=== PATIENT | female | born 1990 | race Caucasian/White ===

== ENCOUNTER 2018-09-03 08:54 | Outpatient (CLI) | payer OTHER ==
[~2018-09-03] VITALS: Ht 162.6 cm; Wt 104.2 kg
[2018-09-03 09:19] VITALS: BP 141/91
[2018-09-03 09:58] VITALS: BP 135/87
[2018-09-03] MEDS ORDERED: PRENTAB9 PO (10:45)
--- NOTE | 2018-09-03 14:07 | HPE ---
DATE OF ADMISSION: 09/03/2018 27-year-old 4, para 0, abortio 3, last menstrual period (LMP) 11/24/2017, EDC 08/31/2018 at 40 and 2 days of gestation had a history of spontaneous rupture of membranes at 0300. Was told by the intake physician to come after 07:30 this morning she had no contractions. No loss of fluid since that time. PAST HISTORY: In September 2011 spontaneous at 6 weeks. December 04, 2011 spontaneous at 6 weeks 4 days and November 2013 had an ectopic , question on the left side where the did either a salpingectomy or just milked out the ectopic. Her labs are O+, HIV negative, hep negative, RPR negative, rubella immune. Varicella immune. Urine was negative. 1-hour glucose 99. There is no other lab work available. The patient came in not wearing a pad. No evidence of leaking no evidence of contractions. Category 1 strip, temperature 98.4, blood pressure is 135/82. Respirations are 18 and pulse is 70. Urine 1.025, pH 5, the rest is negative. Symphysis fundus height is 40. Four quadrant bowel sounds are noted. Nontender uterus, vertex presenting. Sterile speculum examination: Cervix is closed. Ferning was negative. Nitrazine was negative. No suggestion of bacterial vaginosis (BV) or yeast. No evidence of discharge or bleeding. Cervix was 50% effaced, -3 station, about a finger posteriorly. The rest examination unremarkable. 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 No sexually transmitted diseases (STDs). No past medical or surgical history. Family history is noncontributory. Does not smoke, drink abuse drugs. She is . There is no domestic violence. She has no rashes, lesions or pruritus. No arthralgia or myalgia. No complaints of cough, wheezes, shortness of breath or dyspnea on exertion. Not bruising. Not bleeding. Neuro complete. No incontinency or frequency. The nausea, vomiting, diarrhea or constipation. No diabetic issues. In summary we have a term gestation with negative ruptured membranes. Counseled regarding premature rupture of membranes bleeding, kick chart and labor when to call the provider. Patient is booked for induction of labor on Friday when she will be 41 weeks. Between then and now if contractions start or continues to return here for evaluation. The patient had an appointment tomorrow at the clinic for JOAN and NST. Her NST year was category 1. Her JOAN was over 15 with three quadrants. The patient does not necessarily have to come to that appointment but keep her Friday induction of labor appointment. The patient was discharged undelivered. was given a note regarding the fact that he was here during the examination.
== END 2018-09-03 10:52 | disposition home or self-care (01) ==
LOC: M LDO 08:54
PROVIDERS: ATTEND Obstetrics & Gynecology
DX: O26.893 Other specified pregnancy related conditions, third trimester (principal); Z3A.40 40 weeks gestation of pregnancy
CPT/HCPCS: 59025; 76815; G0378; G0463

== ENCOUNTER 2018-09-04 10:01 | Inpatient (IN) | payer OTHER ==
[~2018-09-04] VITALS: Ht 162.6 cm; Wt 102.7 kg
[2018-09-04] VITALS (37 sets, daily range): BP systolic 92–138; BP diastolic 50–103
[~2018-09-04 10:01] MED LIST: PRENTAB9 PO
[2018-09-04 11:43] LABS: HEMATOCRIT 40.1 % (36.0-47.0); HEMOGLOBIN 13.6 g/dl (12.0-15.5); MEAN CORPUSCULAR HEMOGLOBIN 28.8 pg (27.0-33.0); MEAN CORPUSCULAR HGB CONC 33.9 g/dl (32.0-36.5); PLATELET COUNT, AUTOMATED 286 10^3/uL (150-450); RED BLOOD COUNT 4.72 10^6/uL (4.00-5.40); WHITE BLOOD COUNT 12.1 10^3/uL (4.0-10.0)
[2018-09-04] MEDS ORDERED: OXYTOCIN DRIP 30 UNITS in APPROPRIATE DILUENT 1 EA IV SCH (13:00)
[2018-09-04] MEDS: LR 1,000 ML IV SCH ×3 (13:30→20:49)
[2018-09-04] MEDS ORDERED: LACTATED RINGER'S 1000 ML IV STA (16:45)
--- NOTE | 2018-09-04 16:50 | IPNPDOC ---
Text Note Date of Service The patient was seen on 09/04/18. NOTE Pit at 4 mu/min FHT Cat 1, intermittent early decels noted, mod denton throughout, reg ctx's Pain increasing, desires an epidural Cx /-1, signif change OK for epidural Recheck in ~3 hrs, sooner prn. If no change next check will insert IUPC. Sessions VS,Luc, I+O VSLuc I+O Laboratory Tests 09/04/18 11:33 Red Blood Count 4.72, Mean Corpuscular Volume 85.0, Mean Corpuscular Hemoglobin 28.8, Mean Corpuscular Hemoglobin Concent 33.9, Red Cell Distribution Width 13.3 Vital Signs Date Time Temp Pulse Resp B/P (MAP) Pulse Ox O2 Delivery O2 Flow Rate FiO2 09/04/18 16:10 87 18 116/56 (76) 09/04/18 15:32 977.0 SESSIONSHAILEE MD Sep 04, 2018 16:50
[2018-09-04] MEDS ORDERED: FENTANYL 2MCG/ML ROPIVACAINE 0.2% IN 0.9% NACL 100ML IVBAG As Ordered ONE (17:11)
--- NOTE | 2018-09-04 17:18 | HPEPDOC ---
Obstetrical History & Physical General Date of Admission Sep 04, 2018 at 12:35 History of Present Illness late entry, examined at lunchtime 27 y/o at 40+4 with SROM this AM at 0400 this AM. Nitr pos, copious amts of fluid since ROM. Pos FM, no VB. Preg uncomplicated other than a renal cyst noted, baby will need a post delivery renal US. Transfer of care to us at 32 weeks. 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 Past Medical History Surgical History: Other (ectopic preg, laparoscopy X1) Family History Significant Family History: No pertinent family hx Social History Marital Status: Family situation: Spouse/partner home Psychosocial History: No pertinent psych hx * Smoker: non-smoker Alcohol: Denies Drugs: denies Abuse Violence Screening Have you been hit/kicked/slapp: No Have you been sexually assault: No Imunizations Tdap status: current Influenza Status: current Allergies Coded Allergies: No Known Allergies (Unverified , 09/03/18) Medications Scheduled Multivitamins/ ( 27-0.8 mg) 1 Tab Tab, 1 TAB PO DAILY Physical Examination Physical Examination GENERAL: Alert and oriented times three. ABDOMEN: Gravid and non-tender to touch. FETUS: Is vertex (VTX) by sterile vaginal examination (SVE), /-2 at ~noon EXTREMITIES: No edema. Vital Signs/I&O Vital Signs Date Time Temp Pulse Resp B/P (MAP) Pulse Ox O2 Delivery O2 Flow Rate FiO2 09/04/18 16:10 87 18 116/56 (76) 09/04/18 15:32 977.0 Laboratory Data 24H LABS Laboratory Tests 2 09/04/18 11:33: Nucleated Red Blood Cells % (auto) 0.0, Syphilis Serology NONREACTIVE 09/04/18 12:40: Serology Scanned Report Hepatitis B Testing CBC/BMP Laboratory Tests 09/04/18 11:33 Red Blood Count 4.72, Mean Corpuscular Volume 85.0, Mean Corpuscular Hemoglobin 28.8, Mean Corpuscular Hemoglobin Concent 33.9, Red Cell Distribution Width 13.3 Urine Culture: No Growth Pertinent Laboratoy Data Blood Type: O+ RBC Antibody Screen: Negative HIV: Negative Hepatitis B: Negative Hepatitis C: Unknown Rapid Plasma Reagin: Nonreactive Rubella: Immune Varicella: Immune Group B Streptococcus: Negative Quad Screen Test: Declined Cystic Fibrosis: Declined Anatomy Ultrasound Ultrasound Date: Aug 27, 2018 Placenta Location: Fundal Normal Anatomy: No (left kidney cyst, limited as was done at term) Placenta Previa: No Assessment Variability: Moderate Accelerations: Positive Decelerations: Early Tocometer Contractions: Yes Frequency: irregular Duration: less than 60 seconds Strength: palpated as mild Assessment/Plan Assessment SROM. Plan Admit and orient. Wellness Assistant and consent. Diet: clears Group B Streptococcus (GBS) neg Labs and intravenous (IV) per unit protocol. Counseled on Pitocin and induction of labor (IOL). Start now Lactated Ringers (LR): Bolus 1000 mL prior to epidura, then at 125 mL/hr. Anticipate normal spontaneous delivery () C-S as appropriate. Sessions MD HUMPHREYS,HAILEE Jeff MD Sep 04, 2018 17:18
[2018-09-04] MEDS ORDERED: LACTATED RINGER'S 1000 ML IV PRN (18:15)
[2018-09-04] MEDS ORDERED: ONDANSETRON 4MG/2ML VIAL (J2405) IV PRN (18:15)
[2018-09-04] MEDS ORDERED: EPIDURAL COMMENT XX SCH (18:15)
[2018-09-04] MEDS ORDERED: NALOXONE INJ 0.4 MG/1 ML VIAL (J2310) IV PRN (18:15)
[2018-09-04] MEDS ORDERED: diphenhydrAMINE INJ 50MG/ML VIAL (J1200) IV PRN (18:15)
[2018-09-04] MEDS ORDERED: ePHEDrine SULFATE 25 MG/5 ML(5MG/ML) SYRINGE IV PRN (18:15)
[2018-09-04] MEDS ORDERED: EPIDURAL/PCA KEYS XX PRN (18:15)
[2018-09-04] MEDS ORDERED: FENTANYL/ROPIVACAINE/NACL BAG 100 ML EPIDURAL SCH (18:15)
[2018-09-04] MEDS ORDERED: REFRIGERATOR IV KEYS XX PRN (18:15)
[2018-09-04] MEDS ORDERED: FAMOTIDINE IV BAG 20 MG in APPROPRIATE DILUENT 1 EA IV ONE (18:45)
--- NOTE | 2018-09-04 21:38 | IPNPDOC ---
Text Note Date of Service The patient was seen on 09/04/18. NOTE NST Cat 1 with periods of minimal variability, mostly moderate with reg ctx's and accels, especially when BP is corrected for post-epidural hypotension, has needed ephedrine X3, RN doing well watching this and reacting appropriately. Cx /, good progress. Plan on recheck at OK, sooner prn. Sessions VS,Luc, I+O VSLuc I+O Laboratory Tests 09/04/18 11:33 Red Blood Count 4.72, Mean Corpuscular Volume 85.0, Mean Corpuscular Hemoglobin 28.8, Mean Corpuscular Hemoglobin Concent 33.9, Red Cell Distribution Width 13.3 Vital Signs Date Time Temp Pulse Resp B/P (MAP) Pulse Ox O2 Delivery O2 Flow Rate FiO2 09/04/18 20:46 98.0 118 18 93/57 (69) SESSIONS,HAILEE Jeff MD Sep 04, 2018 21:38
[2018-09-05] VITALS (20 sets, daily range): BP systolic 69–146; BP diastolic 38–86
--- NOTE | 2018-09-05 00:21 | IPNPDOC ---
Text Note Date of Service The patient was seen on 09/05/18. NOTE FHT Cat 1, reg ctx's Cx C/90, RN check 1 hr ago was similar. Straight OA Will place back on pitocin and check ~0200, sooner prn Sessions MD CRAMER,Luc, I+O VS, Luc, I+O Laboratory Tests 09/04/18 11:33 Red Blood Count 4.72, Mean Corpuscular Volume 85.0, Mean Corpuscular Hemoglobin 28.8, Mean Corpuscular Hemoglobin Concent 33.9, Red Cell Distribution Width 13.3 Vital Signs Date Time Temp Pulse Resp B/P (MAP) Pulse Ox O2 Delivery O2 Flow Rate FiO2 09/04/18 23:03 99.0 115 18 113/60 (77) I&O- Last 24 Hours up to 6 AM 09/05/18 06:00 Intake Total 2958 ml Output Total 1250 ml Balance 1708 ml SESSIONS,HAILEE Jeff MD Sep 05, 2018 00:21
[2018-09-05] MEDS: LR 1,000 ML IV SCH (00:59)
--- NOTE | 2018-09-05 02:12 | IPNPDOC ---
Text Note Date of Service The patient was seen on 09/05/18. NOTE Pit at 4, lots more pressure NST Cat 2, mod denton, some variables and early's C/C/+2, start pushing Sessions VS,Luc, I+O VSLuc I+O Laboratory Tests 09/04/18 11:33 Red Blood Count 4.72, Mean Corpuscular Volume 85.0, Mean Corpuscular Hemoglobin 28.8, Mean Corpuscular Hemoglobin Concent 33.9, Red Cell Distribution Width 13.3 Vital Signs Date Time Temp Pulse Resp B/P (MAP) Pulse Ox O2 Delivery O2 Flow Rate FiO2 09/05/18 00:57 98.7 18 09/05/18 00:52 117 105/55 (72) I&O- Last 24 Hours up to 6 AM 09/05/18 06:00 Intake Total 3933 ml Output Total 1250 ml Balance 2683 ml SESSIONS,HAILEE Jeff MD Sep 05, 2018 02:12
[2018-09-05] MEDS ORDERED: OXYTOCIN DRIP 30 UNITS in APPROPRIATE DILUENT 1 EA IV SCH (05:12)
[2018-09-05] MEDS ORDERED: DIBUCAINE 1% OINTMENT 30GM TOP PRN (05:15)
[2018-09-05] MEDS ORDERED: METOCLOPRAMIDE INJ 10MG/2ML VIAL (J2765) IV PRN (05:15)
[2018-09-05] MEDS ORDERED: MEASLES,MUMPS,RUBELLA VACCINE INJ (MMR-II) (90707) SC SCH (05:15)
[2018-09-05] MEDS ORDERED: RHOGAM 300 MCG (1500 IU) INJ (J2790) IM SCH (05:15)
--- NOTE | 2018-09-05 05:20 | DNPDOC ---
[facility] Delivery Note Delivery Note DATE OF DELIVERY: [id number] PREDELIVERY DIAGNOSIS: 40 5/7 weeks' gestation and labor. POST DELIVERY DIAGNOSIS: Delivered. PROCEDURE: Spontaneous vaginal delivery RESEARCH TECH: Dr. Humphreys ANESTHESIA: epidural ESTIMATED BLOOD LOSS: 300 mL. FINDINGS: 8 pound 10 ounce male infant, Score 8/9, nuchal cord times 1, loose (reduced) DELIVERY SUMMARY: Pushed for ~2.5 hrs, good effort. Verbal consent for episiotomy but she pushed extra hard and not needed. Vtx delivered KAMRON, then to ROT. Cord easily reduced. Left ant shoulder w/o delay followed by right shoulder. Good shape to abd. Cord C/C by FOB. Cord blood. Placenta intact. Fundus firm, pit going 999. Small amt trailing membranes easily removed with bimanual exam and massage. 1st degr lac repaired with 3-0 vicryl. Good cosmesis/hemostasis. Uncomplicated. Sessions MD HUMPHREYS,HAILEE Jeff MD Sep 05, 2018 05:20
[2018-09-05] MEDS: DOCUSATE SODIUM 100 MG CAP PO SCH ×2 (08:43→21:59)
[2018-09-05] MEDS: IBUPROFEN 800 MG TAB PO PRN ×2 (08:43→18:41)
[2018-09-05] MEDS: PRENATAL VITAMINS CHEWABLE TABLET PO SCH (08:43)
[2018-09-05] MEDS: ACETAMINOPHEN TAB 650MG DOSE (2X325MG) PO PRN (12:16)
--- NOTE | 2018-09-05 14:53 | IPN ---
DATE: 09/05/2018 Patient and requested circumcision of their male . After discussing risks and benefits of circumcision, the medical and nonmedical indications, penile block, and aftercare, expressed understanding of the penile block, aftercare, and bleeding, signed the consent form. We await the clearance by the drywall hanger.
[2018-09-05] MEDS ORDERED: ADACEL/BOOSTRIX VACCINE (DIPHTH/PERTUSS/ACELL/TETANUS)0.5ML SYR (90715) IM PRN (17:15)
[2018-09-06 05:51] VITALS: BP 98/53
[2018-09-06] MEDS: PRENATAL VITAMINS CHEWABLE TABLET PO SCH (07:56)
[2018-09-06] MEDS: DOCUSATE SODIUM 100 MG CAP PO SCH ×2 (07:56→21:03)
[2018-09-06] MEDS: IBUPROFEN 800 MG TAB PO PRN ×2 (07:57→18:39)
--- NOTE | 2018-09-06 09:56 | IPNPDOC ---
Progress Note Date of Service: Sep 06, 2018 Progress Note 27 yo G4 now P1 s/p uncomplicated yesterday after being admitted for SROM. Currently PPD#1. Ms. Oakes reports feeling well today, just tired. She has been ambulating, voiding, and tolerating a regular diet. Lochia is minimal. She has minimal pain. Vitals - VSS, afebrile, normotensive, non tachycardic General - AAOX3, laying in bed, NAD Abdomen - Fundus firm at U-2. No fundal tenderness Extremities - Mild edema Ms. Oakes is doing well this AM and is making an appropriate recovery. Plan to continue to encourage ambulation and today. consultation PRN. Continue routine care. Anticipate DC home tomorrow. Mary Ellen Marcus DO VS, I&O, 24H, Fishbone Vital Signs/I&O Vital Signs Date Time Temp Pulse Resp B/P (MAP) Pulse Ox O2 Delivery O2 Flow Rate FiO2 09/06/18 05:51 98.2 94 17 98/53 (68) I&O- Last 24 Hours up to 6 AM 09/06/18 06:00 Output Total 1000 ml Balance -1000 ml MARY ELLEN MARCUS DO Sep 06, 2018 09:56
[2018-09-06] MEDS: ACETAMINOPHEN TAB 650MG DOSE (2X325MG) PO PRN (13:18)
[2018-09-06 17:52] VITALS: BP 122/64
[2018-09-07 06:05] VITALS: BP 111/71
--- NOTE | 2018-09-07 06:59 | DS.PDOC ---
Discharge Summary General Date of Admission Sep 04, 2018 at 12:35 Date of Discharge Sep 07, 2018 Discharge Summary HOSPITAL COURSE: Ms. 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 Her course has been unremarkable. On her day of discharge she met all appropriate discharge criteria. She was ambulating, voiding, tolerating a regular diet, and had minimal lochia and pain. DISCHARGE MEDICATIONS: Please see below. ALLERGIES: Please see below. PHYSICAL EXAMINATION ON DISCHARGE: VITAL SIGNS: Please see below. GENERAL: AAOX3, NAD ABDOMINAL EXAMINATION: Fundus firm at U-2 EXTREMITIES: Minimal edema PSYCHIATRIC EXAMINATION: affect appropriate LABORATORY DATA: Please see below. ACTIVITY: Pelvic rest for 6 weeks. DIET: Regular diet DISCHARGE PLAN: discharge home DISPOSITION: Discharge home on 07Sep2018. DISCHARGE INSTRUCTIONS: 1. Pelvic rest for 6 weeks ITEMS TO FOLLOWUP ON ON OUTPATIENT: 1. appointment in 6-8 weeks. DISCHARGE CONDITION: Stable. TIME SPENT ON DISCHARGE: Greater than 20 minutes. Mary Ellen Marcus DO Vital Signs/I&Os Vital Signs Date Time Temp Pulse Resp B/P (MAP) Pulse Ox O2 Delivery O2 Flow Rate FiO2 09/07/18 06:05 98.5 88 17 111/71 (84) Discharge Medications Scheduled Multivitamins/ ( 27-0.8 mg) 1 Tab Tab, 1 TAB PO DAILY, (Reported) Allergies Coded Allergies: No Known Allergies (Unverified , 09/03/18) MARY ELLEN MARCUS DO Sep 07, 2018 06:59
[2018-09-07] MEDS: PRENATAL VITAMINS CHEWABLE TABLET PO SCH (08:31)
[2018-09-07] MEDS: DOCUSATE SODIUM 100 MG CAP PO SCH (08:31)
[2018-09-07] MEDS ORDERED: IBUP-1114 PO (11:46)
[2018-09-07] MEDS ORDERED: MAPA500T2 PO (11:46)
== END 2018-09-07 12:40 | disposition home or self-care (01) | DRG 807 ==
LOC: M LDO 10:01 → M LDI 12:35 → M OBS 09-05 10:01
PROVIDERS: ADMIT Obstetrics & Gynecology; ATTEND Obstetrics & Gynecology
PROC: 10E0XZZ Delivery of Products of Conception, External Approach (ICD-10-PCS; principal; 2018-09-05)
PROC: 0HQ9XZZ Repair Perineum Skin, External Approach (ICD-10-PCS; 2018-09-05)
DX: O48.0 Post-term pregnancy (principal); Z37.0 Single live birth; Z3A.40 40 weeks gestation of pregnancy; O70.0 First degree perineal laceration during delivery

== ENCOUNTER 2020-04-22 05:10 | Inpatient (IN) | payer OTHER ==
[~2020-04-22] VITALS: Ht 165.1 cm; Wt 93.5 kg
[~2020-04-22 05:10] MED LIST changes: +IBUP-1114 PO; +MAPA500T2 PO
[2020-04-22] MEDS ORDERED: OXYTOCIN 30 UNITS IN 0.9% NaCl 500ML IV BAG (J2590) As Ordered ONE (05:38)
[2020-04-22 05:46] LABS: HEMATOCRIT 41.2 % (36.0-47.0); MEAN CORPUSCULAR HEMOGLOBIN 28.7 pg (27.0-33.0); MEAN CORPUSCULAR VOLUME 84.4 fl (80.0-96.0); PLATELET COUNT, AUTOMATED 271 10^3/uL (150-450); RED BLOOD COUNT 4.88 10^6/uL (4.00-5.40); WHITE BLOOD COUNT 13.4 10^3/uL (4.0-10.0)
--- NOTE | 2020-04-22 05:49 | HPEPDOC ---
Obstetrical History & Physical General Date of Admission Apr 22, 2020 at 05:27 History of Present Illness 29yo at 38+1wks presenting for c/o worsening ctx's throughout the night. Denies LOF, VB, or DFM. Chief Complaint: Contractions, term Information Provided By: Patient Care Care: Good Care Dating Final EDC: May 05, 2020 Final EDC for Daily Update: May 05, 2020 Final EDC by: 1st trimester (US) (6w6d on [id number]) Antepartum Course Diagnos(e)s Mental disorders complicating Height (inches): 65 Pre- weight (lbs.): 177 Admission Weight (lbs.): 207 Change in Weight (lbs.): 30 Past Medical History Past Obstetrical History : Past Obstetrical History: Multigravida (2 SAB, 1 ectopic s/p salpingectomy, 1 with pelvis proven to [id number]) Past Medical History Medical History Anxiety Depression Surgical History: Other (Left salpingectomy for ectopic , ear tubes) Family History Significant Family History: No pertinent family hx Social History Marital Status: Family situation: Spouse/partner home Psychosocial History: Anxiety, Depression * Smoker: non-smoker Alcohol: Denies Drugs: denies Abuse Violence Screening Have you been hit/kicked/slapp: No Have you been sexually assault: No Imunizations Tdap status: current (given 02/23/20) Allergies Coded Allergies: No Known Allergies (Unverified , 09/03/18) Medications Scheduled No.137/Iron/Folic Acd ( Vitamin Tablet) 1 Tab Tab, 1 TAB PO DAILY Scheduled PRN Acetaminophen (Mapap) 500 Mg Tab, 650 MG PO Q4HP PRN for PAIN Ibuprofen (Ibuprofen) 400 Mg Tab, 800 MG PO Q8HP PRN for PAIN SCALE 6-10 Physical Examination Physical Examination GENERAL: Alert and oriented times three. ABDOMEN: Gravid and non-tender to touch. FETUS: Is vertex (VTX) by sterile vaginal examination (SVE), fetus is vertex (VTX) by Farrukh. CARDS: well-perfused LUNGS: no exaggerated respiratory effort appreciated, no cough EXTREMITIES: No edema. : NEFG, SVE 8/c/0, no abnml discharge Laboratory Data Urine Culture: No Growth Pertinent Laboratoy Data Blood Type: O+ RBC Antibody Screen: Negative HIV: Negative Hepatitis B: Negative Rapid Plasma Reagin: Nonreactive Rubella: Immune Varicella: Immune Chlamydia/Gonorrhea: Negative Group B Streptococcus: Negative (04/07/20) Quad Screen Test: Negative Cystic Fibrosis: Unknown Glucose Tolerance Test: 133 Anatomy Ultrasound Ultrasound Date: Nov 29, 2019 Placenta Location: Right Lateral Normal Anatomy: Yes Placenta Previa: No Vaginal Examination Dilation: 8 cm Effacement: 100% Station: 0 Cervical Consistency: Soft Cervical Position: Anterior Presentation: Cephalic presentation Assessment Heart Rate (FHR): 135 Variability: Moderate Accelerations: Positive Decelerations: None Tocometer Contractions: Yes Frequency: every 1-3 min. Multi-drug resistant Organism: No history of MDRO Assessment/Plan Assessment 29yo at 38+1wks presenting for c/o worsening ctx's and found to be in active labor with SVE 8/c/0. Membranes intact. GBS neg. FHRT cat I. Normotensive, afebrile. Plan Admit and orient. Radiation Protection Specialist and consent. Diet: clears while in active labor Group B Streptococcus (GBS) negative. Labs and intravenous (IV) per unit protocol. Counseled on Pitocin and augmentation of labor. Lactated Ringers (LR): Bolus 500mL, then at 125 mL/hr. Anticipate normal spontaneous delivery () Continuous EFM, may internalize if indicated Patient may have epidural as desired. C-S as appropriate. NARAYAN ELKINS DO Apr 22, 2020 05:49
[2020-04-22 06:29] VITALS: BP 119/69
[2020-04-22 06:44] VITALS: BP 110/64
[2020-04-22 06:59] VITALS: BP 111/70
[2020-04-22 07:14] VITALS: BP 107/64
--- NOTE | 2020-04-22 07:16 | DNPDOC ---
[facility] Delivery Note Delivery Note DATE OF DELIVERY: 04/22/2020 PREDELIVERY DIAGNOSIS: 38+1/7 weeks' gestation and labor. POST DELIVERY DIAGNOSIS: Delivered. PROCEDURE: Spontaneous vaginal delivery. GUIDE FOREIGN TOUR: Dr. Narayan Elkins ANESTHESIA: None ESTIMATED BLOOD LOSS: 100 mL. FINDINGS: 7 pound 10 ounce 3470g, female , Score 8/9, clear fluid, no nuchal cord. DELIVERY SUMMARY: Patient presented to L&D at 8/c/0. Patient had SROM and was noted to be c/c/+2. With excellent maternal effort, spontaneous vaginal delivery of a viable term female infant. Presentation was OA with restitution to ROT with left shoulder anterior position. Anterior shoulder and body delivered without difficulty. No nuchal cord. No meconium. Infant placed on maternal abdomen with spontaneous cry. Inspection revealed no lacerations. Pitocin IV bolus initiated. Three vessel cord clamped x2 after 6 minutes of delayed cord clamping and cut by FOB. Cord blood sample obtained. Third stage expressed with intact placenta. Fundal massage revealed firm uterine tone with hemostasis noted. Mother and infant stable and bonding upon my leaving the room. EBL 100ml. NARAYAN ELKINS DO Apr 22, 2020 07:16
[2020-04-22 08:55] VITALS: BP 119/65
[2020-04-22] MEDS: IBUPROFEN 800 MG TAB PO PRN (16:51)
[2020-04-22 18:07] VITALS: BP 126/76
[2020-04-23 06:14] VITALS: BP 121/78
[2020-04-23] MEDS: IBUPROFEN 800 MG TAB PO PRN (17:24)
[2020-04-23 17:47] VITALS: BP 132/70
[2020-04-24 06:00] VITALS: BP 130/76
--- NOTE | 2020-04-24 07:20 | IPNPDOC ---
Progress Note Date of Service: Apr 24, 2020 Day#: 2 Progress Note SUBJECT: 29yo s/p doing well day # 2. She has been ambul ating, voiding spontaneously without issue and tolerating regular diet. Breast feeding without issue. Reports lochia is decreasing. Reports pain controlled. OBJECTIVE: VITAL SIGNS: Within normal limits, afebrile. Alert and oriented times three. RESP: no exaggerated respiratory effort appreciated, no cough CARDS: well-perfused Abdomen: Fundus firm at U-2. Soft, NTTP. : Small lochia, no edema ASSESSMENT: 29yo s/p doing well day # 2. Normotensive, afebrile, hemodynamically stable with no evidence of infection. PLAN: 1. Discharge to home today. 2. Tylenol and Motrin for pain. 3. Encourage breast feeding and ambulation. 4. Encourage regular diet as tolerated. 5. Routine PP visit in 6 weeks in clinic. 6. Discussed return precautions at length. VS, I&O, 24H, Fishbone Vital Signs/I&O Vital Signs Date Time Temp Pulse Resp B/P (MAP) Pulse Ox O2 Delivery O2 Flow Rate FiO2 04/24/20 06:00 98.0 76 18 130/76 (94) 97 Room Air NARAYAN ELKINS DO Apr 24, 2020 07:20
--- NOTE | 2020-04-25 12:02 | IPN ---
DATE: 04/23/2020 SUBJECTIVE: This lady is a 29-year-old 5 now para 2 who was admitted with spontaneous labor at 38 and 1 weeks of gestation. She had a spontaneous vaginal delivery of a female , 7 pounds, 10 ounces, 3470 grams, Apgars of 8 and 9 and 1 and 5 minutes respectively. On her first day we discussed phlebitis, cystitis, mastitis, endometritis, cellulitis, diet, exercise, pain management, perineal, breast, and wound care. Admitting hemoglobin was 14.0, hematocrit 41.2 and platelets are 271,000. PHYSICAL EXAMINATION: Vital signs this morning: Blood pressure 121/78, respirations are 15, pulse is 74, temperature is 97.9. ASSESSMENT: In summary, at term gestation delivered live female infant. Patient had been in contact with a nurse that was COVID positive, patient saw in reverse isolation and precautions. Patient is exhibiting no symptoms at the present time. Plans are for discharge tomorrow with both baby and mother. CARMELITA
== END 2020-04-24 13:05 | disposition home or self-care (01) | DRG 807 ==
LOC: M LDO 05:10 → M LDI 05:27 → M OBS 08:47
PROC: 10E0XZZ Delivery of Products of Conception, External Approach (ICD-10-PCS; principal; 2020-04-22)
DX: O80 Encounter for full-term uncomplicated delivery (principal); Z37.0 Single live birth; Z3A.38 38 weeks gestation of pregnancy